=== PATIENT | female | born 1950 | race Two or more races ===

== ENCOUNTER 2020-02-04 00:04 | Inpatient (IN) | payer OTHER, MEDICARE ==
[~2020-02-04] VITALS: Ht 157.5 cm; Wt 104.0 kg
[2020-02-04 00:55] LABS: BASOPHILS % (AUTO) 0.5 % (0-1); EOSINOPHILS # (AUTO) 0.1 X10'3 (0-0.9); EOSINOPHILS % (AUTO) 1.2 % (0-6); HEMATOCRIT 38.4 % (35.0-45.0); HEMOGLOBIN 12.7 g/dl (12.0-16.0); LYMPHOCYTES # (AUTO) 1.8 X10'3 (1.1-4.8); LYMPHOCYTES % (AUTO) 21.7 % (21-51); MEAN CORPUSCULAR HEMOGLOBIN 28.2 PG (27.0-31.0); MEAN CORPUSCULAR HGB CONC 33.1 g/dL (33.0-36.5); MEAN PLATELET VOLUME 7.7 FL (7.4-10.4); MONOCYTES # (AUTO) 0.5 X10'3 (0-0.9); MONOCYTES % (AUTO) 5.5 % (2-12); NEUTROPHILS # (AUTO) 5.9 X10'3 (1.8-7.7); NEUTROPHILS % (AUTO) 71.1 % (42-75); PLATELET COUNT 238 X10'3 (140-440); RED BLOOD COUNT 4.51 X10'6 (4.20-5.60); RED CELL DISTRIBUTION WIDTH 16.5 % (11.5-14.5); WHITE BLOOD COUNT 8.3 X10'3 (4.5-11.0)
[2020-02-04 01:10] LABS: ALANINE AMINOTRANSFERASE 17 U/L (12-78); ALBUMIN/GLOBULIN RATIO 1.1 (1.1-1.5); ALKALINE PHOSPHATASE 51 IU/L (46-116); ANION GAP 9 (8-16); ASPARTATE AMINO TRANSFERASE 9 U/L (10-37); BILIRUBIN,TOTAL 0.5 MG/DL (0.1-1.0); BLOOD UREA NITROGEN 34 MG/DL (7-18); BUN/CREATININE RATIO 19.3 (6.6-38.0); CALCIUM 9.8 MG/DL (8.5-10.1); CHLORIDE 103 MMOL/L (99-107); CREATININE 1.76 MG/DL (0.40-0.90); GLUCOSE 202 MG/DL (70-104); LIPASE 596 U/L (73-393); SODIUM 138 MMOL/L (135-145); TOTAL CARBON DIOXIDE 25.6 MMOL/L (24-32); TOTAL PROTEIN 7.7 G/DL (6.4-8.2); eGFR 29 ML/MIN
[2020-02-04] MEDS ORDERED: normal saline 1000ML IV soln IVB ONE (01:20)
[2020-02-04] MEDS ORDERED: ondansetron/PF 4mg/2ml inj IV ONE (01:20)
[2020-02-04] MEDS ORDERED: morphine 4 MG/ML inj SYRINge IV PRN (01:20)
[2020-02-04 02:49] LABS: CLARITY,URINE CLEAR (Clear); COLOR,URINE YELLOW (Yellow); GLUCOSE, URINE 500 mg/dl (Neg); KETONES,URINE NEGATIVE (Neg); LEUKOCYTE ESTERASE ,URINE TRACE (Neg); NITRITES, URINE NEGATIVE (Neg); OCCULT BLOOD,URINE NEGATIVE (Neg); PH,URINE 6.5 (4.8-8.0); PROTEIN,URINE NEGATIVE (Neg); UROBILINOGEN,URINE 0.2 E.U/dL (0.2-1.0)
[2020-02-04 02:55] LABS: RBC,URINE NONE SEEN /HPF (0-2); UA COLLECTION TYPE NON-SPECIFIED
[2020-02-04 02:56] LABS: BACTERIA,URINE 2+ /HPF (Neg); SQUAMOUS EPITHELIAL CELL,UR MODERATE /LPF (FEW)
[2020-02-04] MEDS: normal saline 1000ml 1,000 ML IV SCH ×3 (03:07→23:07)
[2020-02-04] MEDS ORDERED: morphine 2 MG/ML inj. syringe IV PRN (03:10)
[2020-02-04] MEDS ORDERED: magnesium hydroxide 30ml (MOM) UD suspension PO PRN (03:10)
[2020-02-04] MEDS ORDERED: acetaminophen 325mg tablet PO PRN ×2 (03:10)
[2020-02-04] MEDS ORDERED: dextrose 50%-water 50ml dispensing syringe IV PRN ×2 (03:10)
[2020-02-04] MEDS ORDERED: HYDROcodone/acetaminophen 5mg/325mg tablet PO PRN (03:10)
[2020-02-04] MEDS ORDERED: dextrose ORAL solution 15 GM/59 ML bottle PO PRN ×2 (03:10)
[2020-02-04] MEDS ORDERED: MESSAGE TO PHARMACY PO ONE (03:10)
[2020-02-04] MEDS ORDERED: mag hydrox/Alum hydrox/simeth 30ml oral suspension PO PRN (03:10)
[2020-02-04] MEDS ORDERED: glucagon, human recombinant 1mg kit SUBCUT PRN (03:10)
[2020-02-04 03:39] LABS: HEMOGLOBIN A1C 6.6 % (4.5-6.2)
[2020-02-04] MEDS ORDERED: METF-436 PO (03:56)
[2020-02-04] MEDS ORDERED: ATOR20TA66 PO (03:56)
[2020-02-04] MEDS ORDERED: HCTZ25T PO (03:56)
[2020-02-04] MEDS ORDERED: PIOG30TA71 PO (03:56)
[2020-02-04] MEDS ORDERED: LISI10TA4 PO (03:56)
[2020-02-04] MEDS ORDERED: LORA-660 PO (04:14)
[2020-02-04] MEDS ORDERED: MELA5TAB12 PO (04:14)
[2020-02-04] MEDS ORDERED: EMPA10TA PO (04:14)
[2020-02-04] MEDS ORDERED: DULA1.5P SQ (04:14)
[2020-02-04] MEDS ORDERED: ASPI-1265 PO (04:14)
[2020-02-04 06:00] VITALS: BP 134/57
--- NOTE | 2020-02-04 06:23 | NUR ---
pt states she uses CPAP at home at night.
[2020-02-04] MEDS ORDERED: MV-M1TAB19 PO (07:11)
--- NOTE | 2020-02-04 07:31 | NUR ---
received ED report from YESSICA patient arrived to ortho floor 0720
[2020-02-04] MEDS ORDERED: potassium Cl 20 mEq SR tablet PO PRN ×2 (09:15)
[2020-02-04] MEDS ORDERED: magnesium 4gm in 100ml NS 100 ML IV PRN (09:15)
[2020-02-04] MEDS: K and/or MAG REPLACEMENT MC SCH ×2 (09:15→20:00)
[2020-02-04] MEDS ORDERED: potassium CL 10mEq/100ml bag 100 ML IV PRN (09:15)
[2020-02-04 10:00] VITALS: BP 152/62
[2020-02-04] MEDS: CefTRIAXone/D5W-Rocephin 1gm 50 ML IV SCH (10:09)
--- NOTE | 2020-02-04 11:39 | NUR ---
DM Consult: Pt A1C less than 7 and not appropriate for DM ed at this time. Addendum: 02/04/20 at [address] Amended: Links added.
[2020-02-04] MEDS ORDERED: PEG 3350/Na sulf,bicarb,Cl/KCl oral sol 4 liter bottle PO ONE (13:20)
[2020-02-04] MEDS ORDERED: metoclopramide 5 mg/ml inj IV PRN (13:20)
[2020-02-04] MEDS: ondansetron/PF 4mg/2ml inj IV PRN (15:22)
[2020-02-04] MEDS: metroNIDAZOLE-Flagyl 500mg/NS 100 ML IV SCH (15:22)
[2020-02-04 18:00] VITALS: BP 130/56
--- NOTE | 2020-02-04 18:00 | NUR ---
Patient in room ORTHO 4024. I have received report from STAN Ge and had the opportunity to ask questions and assume patient care. Addendum: 02/04/20 at 1900 by Caridad High RN Amended: Links added.
--- NOTE | 2020-02-04 18:38 | NUR ---
Problems reprioritized. Patient report given, questions answered & plan of care reviewed with
[2020-02-04] MEDS: insulin glargine (Lantus) pen - multi-dose SQ SCH (20:19)
[2020-02-04] MEDS: HYDROcodone/acetaminophen 10/325mg tab PO PRN (20:28)
[2020-02-04 22:00] VITALS: BP 121/54
[2020-02-05] VITALS (8 sets, daily range): BP systolic 101–127; BP diastolic 39–68
[2020-02-05] MEDS: metroNIDAZOLE-Flagyl 500mg/NS 100 ML IV SCH ×3 (00:28→20:28)
[2020-02-05] MEDS: normal saline 1000ml 1,000 ML IV SCH ×2 (02:56→20:29)
--- NOTE | 2020-02-05 06:24 | NUR ---
Problems reprioritized. Patient report given, questions answered & plan of care reviewed with STAN Zhu. Addendum: 02/05/20 at 0624 by Caridad High RN Amended: Links added.
[2020-02-05 06:29] LABS: BASOPHILS % (AUTO) 0.3 % (0-1); EOSINOPHILS # (AUTO) 0.1 X10'3 (0-0.9); EOSINOPHILS % (AUTO) 1.9 % (0-6); HEMATOCRIT 34.3 % (35.0-45.0); HEMOGLOBIN 11.3 g/dl (12.0-16.0); LYMPHOCYTES # (AUTO) 2.5 X10'3 (1.1-4.8); LYMPHOCYTES % (AUTO) 36.6 % (21-51); MEAN CORPUSCULAR HEMOGLOBIN 28.1 PG (27.0-31.0); MEAN CORPUSCULAR HGB CONC 32.9 g/dL (33.0-36.5); MEAN CORPUSCULAR VOLUME 85.4 FL (78-98); MONOCYTES # (AUTO) 0.5 X10'3 (0-0.9); MONOCYTES % (AUTO) 7.8 % (2-12); NEUTROPHILS # (AUTO) 3.6 X10'3 (1.8-7.7); NEUTROPHILS % (AUTO) 53.4 % (42-75); PLATELET COUNT 190 X10'3 (140-440); RED BLOOD COUNT 4.01 X10'6 (4.20-5.60); RED CELL DISTRIBUTION WIDTH 16.6 % (11.5-14.5); WHITE BLOOD COUNT 6.7 X10'3 (4.5-11.0)
[2020-02-05 06:54] LABS: ALBUMIN 3.6 G/DL (3.4-5.0); ANION GAP 10 (8-16); BLOOD UREA NITROGEN 20 MG/DL (7-18); BUN/CREATININE RATIO 14.5 (6.6-38.0); CALCIUM 8.8 MG/DL (8.5-10.1); CHLORIDE 107 MMOL/L (99-107); CREATININE 1.38 MG/DL (0.40-0.90); GLUCOSE 104 MG/DL (70-104); MAGNESIUM 1.8 MG/DL (1.5-2.4); POTASSIUM 3.9 MMOL/L (3.5-5.1); SODIUM 142 MMOL/L (135-145); eGFR 38 ML/MIN
[2020-02-05] MEDS: ondansetron/PF 4mg/2ml inj IV PRN (07:40)
[2020-02-05] MEDS: K and/or MAG REPLACEMENT MC SCH ×2 (08:00→20:00)
[2020-02-05] MEDS: CefTRIAXone/D5W-Rocephin 1gm 50 ML IV SCH (09:27)
[2020-02-05] MEDS ORDERED: MELA3TAB39 PO (11:19)
[2020-02-05] MEDS ORDERED: EMPA25TA PO (12:00)
[2020-02-05] MEDS ORDERED: fentaNYL/PF 50MCG/1 ML 2ML syringe ONE (14:54)
[2020-02-05] MEDS ORDERED: MIDAZolam 5mg/5ml vial ONE (14:54)
--- NOTE | 2020-02-05 18:34 | NUR ---
Problems reprioritized. Patient report given, questions answered & plan of care reviewed with Luiza PIERCE.
--- NOTE | 2020-02-05 19:42 | NUR ---
Patient in room ORTHO 4024. I have received report from Audra PIERCE and had the opportunity to ask questions and assume patient care.
[2020-02-05] MEDS: lactobacillus rhamnosus 10,000 MMU CELLS/CAPSULE PO SCH (20:28)
[2020-02-05] MEDS: Melatonin 3mg tablet PO SCH (20:29)
[2020-02-05] MEDS: insulin glargine (Lantus) pen - multi-dose SQ SCH (21:00)
[2020-02-06] VITALS (18 sets, daily range): BP systolic 117–164; BP diastolic 46–78
[2020-02-06] MEDS: metroNIDAZOLE-Flagyl 500mg/NS 100 ML IV SCH ×2 (00:01→07:45)
[2020-02-06] MEDS: normal saline 1000ml 1,000 ML IV SCH ×3 (05:07→23:12)
[2020-02-06 06:12] LABS: BASOPHILS % (AUTO) 0.3 % (0-1); EOSINOPHILS # (AUTO) 0.1 X10'3 (0-0.9); EOSINOPHILS % (AUTO) 2.6 % (0-6); HEMATOCRIT 29.4 % (35.0-45.0); HEMOGLOBIN 9.9 g/dl (12.0-16.0); LYMPHOCYTES # (AUTO) 1.8 X10'3 (1.1-4.8); LYMPHOCYTES % (AUTO) 33.2 % (21-51); MEAN CORPUSCULAR HEMOGLOBIN 28.9 PG (27.0-31.0); MEAN CORPUSCULAR HGB CONC 33.7 g/dL (33.0-36.5); MEAN CORPUSCULAR VOLUME 85.6 FL (78-98); MONOCYTES # (AUTO) 0.5 X10'3 (0-0.9); MONOCYTES % (AUTO) 8.7 % (2-12); NEUTROPHILS # (AUTO) 2.9 X10'3 (1.8-7.7); NEUTROPHILS % (AUTO) 55.2 % (42-75); PLATELET COUNT 160 X10'3 (140-440); RED BLOOD COUNT 3.44 X10'6 (4.20-5.60); RED CELL DISTRIBUTION WIDTH 16.5 % (11.5-14.5); WHITE BLOOD COUNT 5.3 X10'3 (4.5-11.0)
[2020-02-06 06:25] LABS: ALBUMIN 2.9 G/DL (3.4-5.0); ANION GAP 8 (8-16); BLOOD UREA NITROGEN 14 MG/DL (7-18); BUN/CREATININE RATIO 11.1 (6.6-38.0); CALCIUM 8.3 MG/DL (8.5-10.1); CHLORIDE 109 MMOL/L (99-107); CREATININE 1.26 MG/DL (0.40-0.90); GLUCOSE 111 MG/DL (70-104); LIPASE 292 U/L (73-393); MAGNESIUM 1.4 MG/DL (1.5-2.4); PHOSPHORUS 3.3 MG/DL (2.3-4.5); POTASSIUM 3.8 MMOL/L (3.5-5.1); SODIUM 142 MMOL/L (135-145); TOTAL CARBON DIOXIDE 25.4 MMOL/L (24-32); eGFR 42 ML/MIN
--- NOTE | 2020-02-06 06:26 | NUR ---
Problems reprioritized. Patient report given, questions answered & plan of care reviewed with Audra PIERCE.
[2020-02-06] MEDS: multivitamins, therapeutics tablet PO SCH (07:42)
[2020-02-06] MEDS: HYDROchlorothiazide 25mg tablet PO SCH (07:43)
[2020-02-06] MEDS: atorvastatin 20mg tablet PO SCH (07:43)
[2020-02-06] MEDS: lactobacillus rhamnosus 10,000 MMU CELLS/CAPSULE PO SCH ×2 (07:43→19:57)
[2020-02-06] MEDS: lisinopril 10 MG tablet PO SCH (07:43)
[2020-02-06] MEDS: magnesium Cl slow-release 64mg tablet PO PRN ×2 (07:51→19:57)
[2020-02-06] MEDS ORDERED: aspirin 81mg tab.chew PO SCH (08:00)
[2020-02-06] MEDS: loratadine 10mg tablet PO SCH (08:16)
[2020-02-06] MEDS: K and/or MAG REPLACEMENT MC SCH ×2 (08:17→19:08)
[2020-02-06] MEDS: CefTRIAXone/D5W-Rocephin 1gm 50 ML IV SCH (09:32)
[2020-02-06] MEDS ORDERED: ringers solution, lacted 1,000 ML IV SCH (10:26)
[2020-02-06] MEDS ORDERED: morphine 4 MG/ML inj SYRINge IV PRN (10:30)
[2020-02-06] MEDS ORDERED: morphine 2 MG/ML inj. syringe IV PRN (10:30)
[2020-02-06] MEDS ORDERED: meperidine/PF 25mg/ml syringe IV PRN ×2 (10:30)
[2020-02-06] MEDS ORDERED: proCHLORperazine 10 MG/2 ml inj IV PRN (10:30)
[2020-02-06] MEDS ORDERED: ondansetron/PF 4mg/2ml inj IV PRN (10:30)
[2020-02-06] MEDS ORDERED: fentaNYL /PF 50mcg/ml 5ml ampule ONE (10:34)
[2020-02-06] MEDS ORDERED: midazolam 2 mg/2 ml injection ONE (10:34)
[2020-02-06] MEDS ORDERED: rocuronium 10mg/ml inj IV ONE (10:40)
[2020-02-06] MEDS ORDERED: neostigmine methylsulfate 1 MG/ML 10ml vial ONE (10:40)
[2020-02-06] MEDS ORDERED: glycopyrrolate 0.2mg/ml inj ONE (10:40)
[2020-02-06] MEDS ORDERED: CefTRIAXone 1000mg inj ONE (10:40)
[2020-02-06] MEDS ORDERED: sevoflurane 250ml liquid IH ONE (10:40)
[2020-02-06] MEDS ORDERED: propofol inj 20 ML IV ONE (11:02)
[2020-02-06] MEDS ORDERED: LIDOcaine 2% (20mg/ml) 5ml vial ONE (11:11)
[2020-02-06] MEDS ORDERED: ondansetron/PF 4mg/2ml inj ONE (11:11)
[2020-02-06] MEDS ORDERED: dexamethasone sod phosphate 4mg/ml inj. ONE (11:11)
[2020-02-06] MEDS ORDERED: acetaminophen 1,000mg/100ml IV 100 ML IV ONE (11:12)
--- NOTE | 2020-02-06 12:22 | NUR ---
Received from OR via ORTHO BED , accompanied by Anesthesiologist DR PALACIOS and report given by Anesthesiolgist. PT AROUSABLE. WOUND VAC DRSG TO ABD CDI, NO DRAINAGE YET NOTED. NO LEAKS IN WOUND VAC. WOUND VAC AT 125 CONTINIOUS. ABD SOFT, PT STATES SHE IS PAINFUL. SCD'S ON. IV TO LEFT HAND PATENT, INFUSING IVF.
[2020-02-06] MEDS: meperidine/PF 25mg/ml syringe IV PRN ×2 (12:31→12:35)
--- NOTE | 2020-02-06 13:22 | NUR ---
PT TRANSFERRED BACK TO [facility] 4024 A PER MD ORDERS. PT TOLERATED A FEW ICE CHIPS IN PACU, DENIED NAUSEA. STATES PAIN IS MUCH BETTER AND IS NOW 3. REPORT GIVEN TO ANUP PIERCE WHO ASSUMED CARE OF PT. ALL BELONGINGS W/ PT UPON XFER TO ORTHO INCLUDING CELL PHONE AND EYE GLASSES. PT AND NURSE AWARE ITEMS PLACED AT BEDSIDE. WOUND VAC DRSG REMAINS CDI WITH NO DRAINAGE YET. PT STATED READINESS FOR XFER BACK TO ORTHO FLOOR.
[2020-02-06] MEDS: morphine 2 MG/ML inj. syringe IV PRN ×3 (14:19→22:47)
[2020-02-06] MEDS: metroNIDAZOLE 500mg tablet PO SCH ×2 (15:34→23:12)
[2020-02-06] MEDS: HYDROcodone/acetaminophen 10/325mg tab PO PRN (17:26)
--- NOTE | 2020-02-06 17:44 | NUR ---
Problems reprioritized. Patient report given, questions answered & plan of care reviewed with Eunice PIERCE on surgical .
--- NOTE | 2020-02-06 17:51 | NUR ---
Patient was transferred to surgical unit, all belongings gathered and sent with patient. Patient had hypoactive bowel sounds. Wound vac had minimal serous sanguineous drainage.
--- NOTE | 2020-02-06 18:30 | NUR ---
Problems reprioritized. Patient report given, questions answered & plan of care reviewed with Celia PIERCE.
[2020-02-06] MEDS: ondansetron/PF 4mg/2ml inj IV PRN (18:37)
--- NOTE | 2020-02-06 18:56 | NUR ---
Patient in room [facility] 349. I have received report from STAN Anna and had the opportunity to ask questions and assume patient care.
[2020-02-06] MEDS: insulin glargine (Lantus) pen - multi-dose SQ SCH (21:00)
[2020-02-06] MEDS: Melatonin 3mg tablet PO SCH (22:47)
[2020-02-07 00:37] VITALS: BP 151/54
[2020-02-07] MEDS: morphine 2 MG/ML inj. syringe IV PRN ×4 (02:49→21:14)
[2020-02-07 05:50] LABS: BASOPHILS % (AUTO) 0.1 % (0-1); EOSINOPHILS % (AUTO) 0 % (0-6); HEMATOCRIT 30.5 % (35.0-45.0); HEMOGLOBIN 10.5 g/dl (12.0-16.0); LYMPHOCYTES % (AUTO) 10.5 % (21-51); MEAN CORPUSCULAR HEMOGLOBIN 28.8 PG (27.0-31.0); MEAN CORPUSCULAR HGB CONC 34.3 g/dL (33.0-36.5); MEAN CORPUSCULAR VOLUME 83.8 FL (78-98); MEAN PLATELET VOLUME 8.3 FL (7.4-10.4); MONOCYTES # (AUTO) 0.7 X10'3 (0-0.9); MONOCYTES % (AUTO) 7.4 % (2-12); NEUTROPHILS # (AUTO) 8.1 X10'3 (1.8-7.7); PLATELET COUNT 177 X10'3 (140-440); RED BLOOD COUNT 3.64 X10'6 (4.20-5.60); RED CELL DISTRIBUTION WIDTH 15.9 % (11.5-14.5); WHITE BLOOD COUNT 9.9 X10'3 (4.5-11.0)
[2020-02-07 06:14] LABS: ALBUMIN 3.2 G/DL (3.4-5.0); ANION GAP 11 (8-16); BLOOD UREA NITROGEN 11 MG/DL (7-18); BUN/CREATININE RATIO 8.6 (6.6-38.0); CALCIUM 8.8 MG/DL (8.5-10.1); CHLORIDE 105 MMOL/L (99-107); CREATININE 1.28 MG/DL (0.40-0.90); GLUCOSE 158 MG/DL (70-104); MAGNESIUM 1.6 MG/DL (1.5-2.4); PHOSPHORUS 4.4 MG/DL (2.3-4.5); POTASSIUM 4.1 MMOL/L (3.5-5.1); SODIUM 139 MMOL/L (135-145); TOTAL CARBON DIOXIDE 23.4 MMOL/L (24-32); eGFR 41 ML/MIN
--- NOTE | 2020-02-07 06:30 | NUR ---
Patient in room [facility] 349. I have received report from Celia PIERCE and had the opportunity to ask questions and assume patient care.
--- NOTE | 2020-02-07 06:32 | NUR ---
Problems reprioritized. Patient report given, questions answered & plan of care reviewed with STAN Anna.
[2020-02-07 07:50] VITALS: BP 164/69
[2020-02-07] MEDS: K and/or MAG REPLACEMENT MC SCH ×2 (08:00→19:39)
[2020-02-07] MEDS: metroNIDAZOLE 500mg tablet PO SCH ×2 (09:22→16:08)
[2020-02-07] MEDS: CefTRIAXone/D5W-Rocephin 1gm 50 ML IV SCH (09:22)
[2020-02-07] MEDS: HYDROchlorothiazide 25mg tablet PO SCH (09:23)
[2020-02-07] MEDS: atorvastatin 20mg tablet PO SCH (09:23)
[2020-02-07] MEDS: lactobacillus rhamnosus 10,000 MMU CELLS/CAPSULE PO SCH ×2 (09:23→21:14)
[2020-02-07] MEDS: multivitamins, therapeutics tablet PO SCH (09:23)
[2020-02-07] MEDS: lisinopril 10 MG tablet PO SCH (09:23)
[2020-02-07] MEDS: loratadine 10mg tablet PO SCH (09:23)
[2020-02-07 11:00] VITALS: BP 145/57
[2020-02-07] MEDS: normal saline 1000ml 1,000 ML IV SCH (12:50)
--- NOTE | 2020-02-07 13:10 | NUR ---
Strauss catheter removed, patient tolerated the procedure well
[2020-02-07 18:15] VITALS: BP 144/51
--- NOTE | 2020-02-07 18:37 | NUR ---
Problems reprioritized. Patient report given, questions answered & plan of care reviewed with Celia PIERCE.
--- NOTE | 2020-02-07 19:03 | NUR ---
Patient in room [facility] 349. I have received report from STAN Anna and had the opportunity to ask questions and assume patient care.
[2020-02-07] MEDS: insulin glargine (Lantus) pen - multi-dose SQ SCH (21:00)
--- NOTE | 2020-02-07 21:03 | NUR ---
Pt s/p FC dc today. Bladder scan performed, 391 mL. Patient was able to void in bsc, 100 mL output. Discussed with patient importance of voiding s/p FC dc and to avoid retention. Pt awares. Will continue to monitor urine output.
[2020-02-07] MEDS: Melatonin 3mg tablet PO SCH (21:14)
[2020-02-08] MEDS: metroNIDAZOLE 500mg tablet PO SCH ×4 (00:12→23:53)
[2020-02-08 00:37] VITALS: BP 139/57
[2020-02-08] MEDS: morphine 2 MG/ML inj. syringe IV PRN ×3 (03:16→19:11)
[2020-02-08 05:17] LABS: BASOPHILS % (AUTO) 0.3 % (0-1); EOSINOPHILS # (AUTO) 0.1 X10'3 (0-0.9); EOSINOPHILS % (AUTO) 1.5 % (0-6); HEMATOCRIT 30.4 % (35.0-45.0); HEMOGLOBIN 10.1 g/dl (12.0-16.0); LYMPHOCYTES # (AUTO) 1.4 X10'3 (1.1-4.8); LYMPHOCYTES % (AUTO) 16.5 % (21-51); MEAN CORPUSCULAR HEMOGLOBIN 28.1 PG (27.0-31.0); MEAN CORPUSCULAR HGB CONC 33.2 g/dL (33.0-36.5); MEAN CORPUSCULAR VOLUME 84.6 FL (78-98); MEAN PLATELET VOLUME 8.2 FL (7.4-10.4); MONOCYTES # (AUTO) 0.8 X10'3 (0-0.9); MONOCYTES % (AUTO) 8.9 % (2-12); NEUTROPHILS # (AUTO) 6.2 X10'3 (1.8-7.7); NEUTROPHILS % (AUTO) 72.8 % (42-75); PLATELET COUNT 168 X10'3 (140-440); RED BLOOD COUNT 3.59 X10'6 (4.20-5.60); RED CELL DISTRIBUTION WIDTH 16.4 % (11.5-14.5); WHITE BLOOD COUNT 8.5 X10'3 (4.5-11.0)
[2020-02-08 05:27] LABS: ANION GAP 6 (8-16); BLOOD UREA NITROGEN 9 MG/DL (7-18); BUN/CREATININE RATIO 7.6 (6.6-38.0); CALCIUM 8.9 MG/DL (8.5-10.1); CHLORIDE 105 MMOL/L (99-107); CREATININE 1.19 MG/DL (0.40-0.90); GLUCOSE 160 MG/DL (70-104); MAGNESIUM 1.5 MG/DL (1.5-2.4); PHOSPHORUS 2.6 MG/DL (2.3-4.5); POTASSIUM 3.5 MMOL/L (3.5-5.1); SODIUM 138 MMOL/L (135-145); eGFR 45 ML/MIN
--- NOTE | 2020-02-08 06:07 | NUR ---
I have received report from Celia PIERCE and had the opportunity to ask questions and assume patient care.
--- NOTE | 2020-02-08 06:43 | NUR ---
Problems reprioritized. Patient report given, questions answered & plan of care reviewed with STAN Lo.
[2020-02-08 07:47] VITALS: BP 129/59
[2020-02-08] MEDS: ondansetron/PF 4mg/2ml inj IV PRN (07:59)
[2020-02-08] MEDS: atorvastatin 20mg tablet PO SCH (08:00)
[2020-02-08] MEDS: multivitamins, therapeutics tablet PO SCH (08:00)
[2020-02-08] MEDS: HYDROchlorothiazide 25mg tablet PO SCH (08:00)
[2020-02-08] MEDS: lactobacillus rhamnosus 10,000 MMU CELLS/CAPSULE PO SCH ×2 (08:00→21:29)
[2020-02-08] MEDS: CefTRIAXone/D5W-Rocephin 1gm 50 ML IV SCH (08:00)
[2020-02-08] MEDS: lisinopril 10 MG tablet PO SCH (08:01)
[2020-02-08] MEDS: loratadine 10mg tablet PO SCH (08:01)
[2020-02-08] MEDS: insulin Lispro (HumaLOG) vial - multi-dose SQ SCH ×2 (08:09→14:29)
[2020-02-08] MEDS: K and/or MAG REPLACEMENT MC SCH ×2 (08:10→20:00)
[2020-02-08 11:00] VITALS: BP 127/56
[2020-02-08] MEDS: normal saline 1000ml 1,000 ML IV SCH (18:02)
--- NOTE | 2020-02-08 18:04 | NUR ---
Problems reprioritized. Patient report given, questions answered & plan of care reviewed with Mason PIERCE.
[2020-02-08 19:50] VITALS: BP 139/52
[2020-02-08] MEDS: insulin glargine (Lantus) pen - multi-dose SQ SCH (20:49)
[2020-02-08] MEDS: Melatonin 3mg tablet PO SCH (21:29)
[2020-02-09] VITALS: BP 133/57
[2020-02-09] MEDS: morphine 2 MG/ML inj. syringe IV PRN ×4 (00:21→19:16)
[2020-02-09] MEDS: ondansetron/PF 4mg/2ml inj IV PRN ×2 (04:38→12:41)
[2020-02-09 05:11] LABS: BASOPHILS % (AUTO) 0.4 % (0-1); EOSINOPHILS # (AUTO) 0.2 X10'3 (0-0.9); EOSINOPHILS % (AUTO) 2.1 % (0-6); HEMATOCRIT 32.5 % (35.0-45.0); HEMOGLOBIN 10.9 g/dl (12.0-16.0); LYMPHOCYTES # (AUTO) 1.6 X10'3 (1.1-4.8); LYMPHOCYTES % (AUTO) 19.1 % (21-51); MEAN CORPUSCULAR HEMOGLOBIN 28.1 PG (27.0-31.0); MEAN CORPUSCULAR HGB CONC 33.5 g/dL (33.0-36.5); MEAN CORPUSCULAR VOLUME 84.1 FL (78-98); MEAN PLATELET VOLUME 8.2 FL (7.4-10.4); MONOCYTES # (AUTO) 0.7 X10'3 (0-0.9); NEUTROPHILS # (AUTO) 5.9 X10'3 (1.8-7.7); NEUTROPHILS % (AUTO) 70.4 % (42-75); PLATELET COUNT 200 X10'3 (140-440); RED BLOOD COUNT 3.87 X10'6 (4.20-5.60); RED CELL DISTRIBUTION WIDTH 16.5 % (11.5-14.5); WHITE BLOOD COUNT 8.3 X10'3 (4.5-11.0)
[2020-02-09 05:33] LABS: ALBUMIN 3.1 G/DL (3.4-5.0); ANION GAP 8 (8-16); BLOOD UREA NITROGEN 8 MG/DL (7-18); BUN/CREATININE RATIO 6.6 (6.6-38.0); CALCIUM 9.1 MG/DL (8.5-10.1); CHLORIDE 103 MMOL/L (99-107); CREATININE 1.22 MG/DL (0.40-0.90); GLUCOSE 157 MG/DL (70-104); MAGNESIUM 1.5 MG/DL (1.5-2.4); PHOSPHORUS 3.1 MG/DL (2.3-4.5); POTASSIUM 3.7 MMOL/L (3.5-5.1); SODIUM 140 MMOL/L (135-145); TOTAL CARBON DIOXIDE 29.3 MMOL/L (24-32); eGFR 44 ML/MIN
--- NOTE | 2020-02-09 06:05 | NUR ---
Patient in room [facility] 349B. I have received report from STAN THOMPSON and had the opportunity to ask questions and assume patient care.
[2020-02-09 08:00] VITALS: BP 140/77
[2020-02-09] MEDS: K and/or MAG REPLACEMENT MC SCH ×2 (08:00→20:00)
[2020-02-09] MEDS: CefTRIAXone/D5W-Rocephin 1gm 50 ML IV SCH (08:19)
[2020-02-09] MEDS: atorvastatin 20mg tablet PO SCH (08:22)
[2020-02-09] MEDS: multivitamins, therapeutics tablet PO SCH (08:23)
[2020-02-09] MEDS: metroNIDAZOLE 500mg tablet PO SCH ×3 (08:23→23:29)
[2020-02-09] MEDS: lisinopril 10 MG tablet PO SCH (08:23)
[2020-02-09] MEDS: lactobacillus rhamnosus 10,000 MMU CELLS/CAPSULE PO SCH ×2 (08:23→19:15)
[2020-02-09] MEDS: loratadine 10mg tablet PO SCH (08:23)
[2020-02-09] MEDS: HYDROchlorothiazide 25mg tablet PO SCH (08:23)
[2020-02-09 11:00] VITALS: BP 135/64
--- NOTE | 2020-02-09 14:18 | NUR ---
Initial: Pt admit w/ colonic obstruction r/t mass and UTI. S/p ascending colon resection biopsy pending w/ renal masses noted as well per MD note. LBM 02/05 advanced to clear liquids post-op PO 25-50% avg meals. Refused breakfast this AM w/ abdominal pain noted pending lunch PO today. Stable for discharge per surgeon note; no orders at this time. Will monitor for PO diet advancement and additional protein needs post-op. Rec: 1. advance diet as medically indicated to heart healthy 2. monitor for ONS needs as diet advances 3. routine bowel care 4. scaled wt this admit Addendum: 02/09/20 at [address] Amended: Links added.
--- NOTE | 2020-02-09 14:52 | NUR ---
WOUND VAC EDUCATION PROVIDED BY WOUND CARE 1. Patient instructed to call the Wound Center or their Home Health Agency immediately if: * They notice a change in the color or amount of the fluid in the canister. * Their wound looks more red than usual or has a foul smell. * The skin around their wound looks reddened or irritated. * The dressing feels loose or appears to be loose. * They experience any increase or changes in their pain. * The alarm will not turn off. 2. Patient instructed that they should not be disconnected from suction for more than 2 hours at a time. * If they are not able to get the suction back on, they need to remove the dressing and take all of the foam out of the wound. * Then moisten sterile gauze with normal saline and place on/in the wound. * Change the dressing once a day until arrangements have been made to replace the wound vac dressing. 3. Patient instructed to turn the wound vac machine OFF and call 911 or go to the ED immediately if their canister fills rapidly with blood. 4. If any of these occur while in the hospital tell a nurse immediately. WOUND INFECTION EDUCATION PROVIDED BY WOUND CARE 1. Patient instructed to call their primary doctor, or go the ED immediately if any of the following symptoms occur: * Increased pain in wound * Increase in drainage from the wound * Redness in the skin surrounding the wound * Warmth in the skin surrounding the wound * Bleeding from the wound * Temperature of 101 or greater 2. If any of these occur while in the hospital tell a nurse immediately. Addendum: 02/09/20 at 1453 by Claudia Prado RN Amended: Links added.
[2020-02-09 18:00] VITALS: BP 114/57
--- NOTE | 2020-02-09 18:46 | NUR ---
Problems reprioritized. Patient report given, questions answered & plan of care reviewed with STAN THOMPSON.
[2020-02-09] MEDS: insulin Lispro (HumaLOG) vial - multi-dose SQ SCH (19:19)
[2020-02-09] MEDS: Melatonin 3mg tablet PO SCH (21:31)
[2020-02-09] MEDS: insulin glargine (Lantus) pen - multi-dose SQ SCH (21:33)
[2020-02-10] VITALS: BP 138/59
[2020-02-10] MEDS: normal saline 1000ml 1,000 ML IV SCH ×2 (03:22→13:12)
[2020-02-10] MEDS: morphine 2 MG/ML inj. syringe IV PRN ×3 (04:19→20:52)
--- NOTE | 2020-02-10 06:16 | NUR ---
Patient in room [facility] 349B. I have received report from STAN THOMPSON and had the opportunity to ask questions and assume patient care.
[2020-02-10 07:00] VITALS: BP 138/55
[2020-02-10] MEDS: K and/or MAG REPLACEMENT MC SCH ×2 (08:00→20:00)
[2020-02-10] MEDS: loratadine 10mg tablet PO SCH (08:41)
[2020-02-10] MEDS: metroNIDAZOLE 500mg tablet PO SCH ×3 (08:41→23:20)
[2020-02-10] MEDS: lactobacillus rhamnosus 10,000 MMU CELLS/CAPSULE PO SCH ×2 (08:41→20:51)
[2020-02-10] MEDS: atorvastatin 20mg tablet PO SCH (08:41)
[2020-02-10] MEDS: multivitamins, therapeutics tablet PO SCH (08:42)
[2020-02-10] MEDS: lisinopril 10 MG tablet PO SCH (08:42)
[2020-02-10] MEDS: CefTRIAXone/D5W-Rocephin 1gm 50 ML IV SCH (08:42)
[2020-02-10] MEDS: HYDROchlorothiazide 25mg tablet PO SCH (08:42)
[2020-02-10] MEDS: insulin Lispro (HumaLOG) vial - multi-dose SQ SCH ×3 (08:50→19:11)
[2020-02-10 14:20] VITALS: BP 132/63
[2020-02-10 18:00] VITALS: BP 169/84
--- NOTE | 2020-02-10 18:33 | NUR ---
Problems reprioritized. Patient report given, questions answered & plan of care reviewed with STAN THOMPSON.
[2020-02-10] MEDS: Melatonin 3mg tablet PO SCH (20:51)
[2020-02-10] MEDS: insulin glargine (Lantus) pen - multi-dose SQ SCH (20:57)
[2020-02-11] VITALS: BP 153/68
[2020-02-11] MEDS: morphine 2 MG/ML inj. syringe IV PRN ×2 (05:46→10:00)
--- NOTE | 2020-02-11 06:27 | NUR ---
Patient in room [facility] 349. I have received report from Mason PIERCE and had the opportunity to ask questions and assume patient care.
[2020-02-11 08:00] VITALS: BP 132/61
[2020-02-11] MEDS: K and/or MAG REPLACEMENT MC SCH (08:00)
--- NOTE | 2020-02-11 08:09 | NUR ---
Dr Alvarenga rounded stating pt is cleared surgically to discharge home.
[2020-02-11] MEDS: lisinopril 10 MG tablet PO SCH (09:36)
[2020-02-11] MEDS: loratadine 10mg tablet PO SCH (09:36)
[2020-02-11] MEDS: multivitamins, therapeutics tablet PO SCH (09:36)
[2020-02-11] MEDS: atorvastatin 20mg tablet PO SCH (09:37)
[2020-02-11] MEDS: lactobacillus rhamnosus 10,000 MMU CELLS/CAPSULE PO SCH (09:37)
[2020-02-11] MEDS: HYDROchlorothiazide 25mg tablet PO SCH (09:37)
--- NOTE | 2020-02-11 10:36 | NUR ---
WOUND INFECTION EDUCATION PROVIDED BY WOUND CARE 1. Patient instructed to call their primary doctor, or go the ED immediately if any of the following symptoms occur: * Increased pain in wound * Increase in drainage from the wound * Redness in the skin surrounding the wound * Warmth in the skin surrounding the wound * Bleeding from the wound * Temperature of 101 or greater 2. If any of these occur while in the hospital tell a nurse immediately. WOUND VAC EDUCATION PROVIDED BY WOUND CARE 1. Patient instructed to call the Wound Center or their Home Health Agency immediately if: * They notice a change in the color or amount of the fluid in the canister. * Their wound looks more red than usual or has a foul smell. * The skin around their wound looks reddened or irritated. * The dressing feels loose or appears to be loose. * They experience any increase or changes in their pain. * The alarm will not turn off. 2. Patient instructed that they should not be disconnected from suction for more than 2 hours at a time. * If they are not able to get the suction back on, they need to remove the dressing and take all of the foam out of the wound. * Then moisten sterile gauze with normal saline and place on/in the wound. * Change the dressing once a day until arrangements have been made to replace the wound vac dressing. 3. Patient instructed to turn the wound vac machine OFF and call 911 or go to the ED immediately if their canister fills rapidly with blood. 4. If any of these occur while in the hospital tell a nurse immediately. Addendum: 02/11/20 at 1036 by Alison Araiza RN Amended: Links added.
[2020-02-11 11:57] VITALS: BP 130/50
[2020-02-11] MEDS ORDERED: HYDR-4353 PO ×2 (12:54→12:56)
--- NOTE | 2020-02-11 13:15 | NUR ---
Patient stated that her ride upon discharge will not be available until 5:30 pm today. Charge nurse notified about late discharge time. [employer] paged to request home health service
--- NOTE | 2020-02-11 15:08 | NUR ---
Discharge instructions given to patient, patient verbalized understanding of all instructions made. Peripheral IV catheter removed, tip intact. Instructed patient to ensure she has all belongings with her before leaving. Written prescription for Okay given to patient. Instructed patient to ensure she follow up with Wound Care clinic 02/13/20 at 10 am as scheduled with her insurance card, ID, wound vac and supplies. Patient was also instructed to follow up with Dr. Vargas Urologist upon discharge
--- NOTE | 2020-02-11 15:11 | NUR ---
Report given to Colette PIERCE
--- NOTE | 2020-02-11 16:00 | NUR ---
Report received from STAN Anna regarding this patient. Patient to be discharged home today at approximately 1730-waiting for her ride. Educated patient on use of her wound vac/changing the canister and charging the wound vac. Patient states she understands if it beeps how to look for possible leak, and that pt has only 2 hours if wound vac dies before sponge must be changed. pt states she has no further questions.
--- NOTE | 2020-02-11 17:40 | NUR ---
Patient discharged via wheelchair; all belongings sent with her and wound vac supplies. Patient refused to have 1700 blood glucose check this afternoon. pt stated "Im going home I dont want to know what it is right now I've had so many pokes already."
== END 2020-02-11 17:33 | disposition home health service (06) | DRG 329 ==
LOC: ER 00:05 → ED HOLD 03:07 → ORTHO 4S 07:30 → SUR 3N 02-06 17:51
PROVIDERS: ADMIT Internal Medicine; ATTEND Family Medicine
PROC: 0DTK0ZZ Resection of Ascending Colon, Open Approach (ICD-10-PCS; principal; 2020-02-07)
DX: C18.2 Malignant neoplasm of ascending colon (principal); K85.90 Acute pancreatitis without necrosis or infection, unspecified; K56.609 Unspecified intestinal obstruction, unspecified as to partial versus complete obstruction; N39.0 Urinary tract infection, site not specified; C19 Malignant neoplasm of rectosigmoid junction; E11.9 Type 2 diabetes mellitus without complications; Z83.3 Family history of diabetes mellitus; Z87.891 Personal history of nicotine dependence; Z90.49 Acquired absence of other specified parts of digestive tract
CPT/HCPCS: 45335; 45380; 45381; 96361; 96374; 99285; Z7506; Z7508; 36415; 74176; 80048; 80053; 81001; 82948; 83036; 83690; 83735; 84100; 85025; 86885; 86900; 86901; 86920; 87081; 87088; 93005; 99152; 99153; A4618; A4620; A6550; A7000; C1758; G0378; J0131; J0696; J1100; J1815; J2001; J2175; J2250; J2270; J2405; J2704; J2710; J3010; J3490; J7030; J7040; J7120

== ENCOUNTER 2020-02-27 10:13 | Day surgery (SDC) | payer OTHER, MEDICARE ==
[~2020-02-27 10:13] MED LIST: ASPI-1265 PO; ATOR20TA66 PO; DULA1.5P SQ; EMPA25TA PO; HCTZ25T PO; HYDR-4353 PO; LIDOcaine 2% 5ml jelly ONE; LISI10TA4 PO; LORA-660 PO; MELA3TAB39 PO; METF-436 PO; MV-M1TAB19 PO; PIOG30TA71 PO
[2020-02-27] MEDS ORDERED: LIDOcaine 2% 5ml jelly ONE (10:33)
== END 2020-02-27 12:03 | disposition home or self-care (01) ==
LOC: WOUND CARE 10:13
PROVIDERS: ATTEND Nurse Practitioner
DX: K94.09 Other complications of colostomy (principal); T81.31XD Disruption of external operation (surgical) wound, not elsewhere classified, subsequent encounter; L98.492 Non-pressure chronic ulcer of skin of other sites with fat layer exposed; I10 Essential (primary) hypertension; E78.5 Hyperlipidemia, unspecified; H26.9 Unspecified cataract; Z85.038 Personal history of other malignant neoplasm of large intestine; Z90.49 Acquired absence of other specified parts of digestive tract; Z87.891 Personal history of nicotine dependence; Y83.8 Other surgical procedures as the cause of abnormal reaction of the patient, or of later complication, without mention of misadventure at the time of the procedure
CPT/HCPCS: 36416; 82948; 97597; 97598

== ENCOUNTER 2020-03-05 10:14 | Day surgery (SDC) | payer OTHER, MEDICARE ==
[~2020-03-05 10:14] MED LIST changes: -LIDOcaine 2% 5ml jelly ONE
[2020-03-05] MEDS ORDERED: LIDOcaine 2% 5ml jelly ONE (11:05)
== END 2020-03-05 11:43 | disposition home or self-care (01) ==
LOC: WOUND CARE 10:14
PROVIDERS: ATTEND Nurse Practitioner
DX: K94.09 Other complications of colostomy (principal); T81.31XD Disruption of external operation (surgical) wound, not elsewhere classified, subsequent encounter; L98.492 Non-pressure chronic ulcer of skin of other sites with fat layer exposed; I10 Essential (primary) hypertension; E11.36 Type 2 diabetes mellitus with diabetic cataract; E78.5 Hyperlipidemia, unspecified; Z85.038 Personal history of other malignant neoplasm of large intestine; Z90.49 Acquired absence of other specified parts of digestive tract; Z87.891 Personal history of nicotine dependence; Y83.3 Surgical operation with formation of external stoma as the cause of abnormal reaction of the patient, or of later complication, without mention of misadventure at the time of the procedure
CPT/HCPCS: 36416; 82948; 97597; 97598

== ENCOUNTER 2020-03-12 10:15 | Day surgery (SDC) | payer OTHER, MEDICARE ==
[2020-03-12] MEDS ORDERED: LIDOcaine 2% 5ml jelly ONE (10:35)
== END 2020-03-12 11:11 | disposition home or self-care (01) ==
LOC: WOUND CARE 10:15
PROVIDERS: ATTEND Nurse Practitioner
DX: K94.09 Other complications of colostomy (principal); T81.31XD Disruption of external operation (surgical) wound, not elsewhere classified, subsequent encounter; E11.622 Type 2 diabetes mellitus with other skin ulcer; L98.492 Non-pressure chronic ulcer of skin of other sites with fat layer exposed; I10 Essential (primary) hypertension; E11.36 Type 2 diabetes mellitus with diabetic cataract; E78.5 Hyperlipidemia, unspecified; Z85.038 Personal history of other malignant neoplasm of large intestine; Z90.49 Acquired absence of other specified parts of digestive tract; Z87.891 Personal history of nicotine dependence; Y83.8 Other surgical procedures as the cause of abnormal reaction of the patient, or of later complication, without mention of misadventure at the time of the procedure
CPT/HCPCS: 97597

== ENCOUNTER 2020-03-19 10:20 | Day surgery (SDC) | payer OTHER, MEDICARE ==
[~2020-03-19 10:20] MED LIST changes: -HYDR-4353 PO
[2020-03-19] MEDS ORDERED: LIDOcaine 2% 5ml jelly ONE (10:44)
== END 2020-03-19 11:10 | disposition home or self-care (01) ==
LOC: WOUND CARE 10:20
PROVIDERS: ATTEND Nurse Practitioner
DX: T81.31XD Disruption of external operation (surgical) wound, not elsewhere classified, subsequent encounter (principal); E11.622 Type 2 diabetes mellitus with other skin ulcer; L98.492 Non-pressure chronic ulcer of skin of other sites with fat layer exposed; I10 Essential (primary) hypertension; E11.36 Type 2 diabetes mellitus with diabetic cataract; H26.8 Other specified cataract; E78.5 Hyperlipidemia, unspecified; K94.09 Other complications of colostomy; Z90.49 Acquired absence of other specified parts of digestive tract; Z87.891 Personal history of nicotine dependence; Y83.8 Other surgical procedures as the cause of abnormal reaction of the patient, or of later complication, without mention of misadventure at the time of the procedure
CPT/HCPCS: 82948; 97597

== ENCOUNTER 2020-03-26 11:13 | Day surgery (SDC) | payer OTHER, MEDICARE ==
[2020-03-26] MEDS ORDERED: LIDOcaine 2% 5ml jelly ONE (11:34)
== END 2020-03-26 12:15 | disposition home or self-care (01) ==
LOC: WOUND CARE 11:13
PROVIDERS: ATTEND Nurse Practitioner
DX: T81.31XD Disruption of external operation (surgical) wound, not elsewhere classified, subsequent encounter (principal); K94.09 Other complications of colostomy; E11.622 Type 2 diabetes mellitus with other skin ulcer; L98.492 Non-pressure chronic ulcer of skin of other sites with fat layer exposed; I10 Essential (primary) hypertension; E11.36 Type 2 diabetes mellitus with diabetic cataract; E78.5 Hyperlipidemia, unspecified; Z85.038 Personal history of other malignant neoplasm of large intestine; Z90.49 Acquired absence of other specified parts of digestive tract; Z87.891 Personal history of nicotine dependence; Y83.8 Other surgical procedures as the cause of abnormal reaction of the patient, or of later complication, without mention of misadventure at the time of the procedure
CPT/HCPCS: 87070; 87075; 87077; 87102; 87186; 97597

== ENCOUNTER 2020-04-02 09:35 | Outpatient (CLI) | payer MEDICARE, OTHER | END 2020-04-02 10:21 | disposition home or self-care (01) | LOC: WOUND CARE 09:35 → EDSTATUS 09:40 → WOUND CARE 10:21 | PROVIDERS: ATTEND Nurse Practitioner | DX: T81.31XD Disruption of external operation (surgical) wound, not elsewhere classified, subsequent encounter (principal); E11.622 Type 2 diabetes mellitus with other skin ulcer; L98.492 Non-pressure chronic ulcer of skin of other sites with fat layer exposed; I10 Essential (primary) hypertension; E11.36 Type 2 diabetes mellitus with diabetic cataract; E66.9 Obesity, unspecified; E78.5 Hyperlipidemia, unspecified; Z85.038 Personal history of other malignant neoplasm of large intestine; Z90.49 Acquired absence of other specified parts of digestive tract; Z87.891 Personal history of nicotine dependence; Z68.41 Body mass index [BMI] 40.0-44.9, adult; Z79.84 Long term (current) use of oral hypoglycemic drugs; Y83.8 Other surgical procedures as the cause of abnormal reaction of the patient, or of later complication, without mention of misadventure at the time of the procedure | CPT/HCPCS: G0463 ==

== ENCOUNTER 2020-04-08 09:32 | Day surgery (SDC) | payer MEDICARE, BC ==
[2020-04-08] MEDS ORDERED: LIDOcaine 2% 5ml jelly ONE (09:56)
== END 2020-04-08 10:22 | disposition home or self-care (01) ==
LOC: WOUND CARE 09:32
PROVIDERS: ATTEND Nurse Practitioner
DX: T81.31XD Disruption of external operation (surgical) wound, not elsewhere classified, subsequent encounter (principal); E11.622 Type 2 diabetes mellitus with other skin ulcer; L98.492 Non-pressure chronic ulcer of skin of other sites with fat layer exposed; I10 Essential (primary) hypertension; E11.36 Type 2 diabetes mellitus with diabetic cataract; E78.5 Hyperlipidemia, unspecified; Z85.038 Personal history of other malignant neoplasm of large intestine; Z90.49 Acquired absence of other specified parts of digestive tract; Z87.891 Personal history of nicotine dependence; Y83.8 Other surgical procedures as the cause of abnormal reaction of the patient, or of later complication, without mention of misadventure at the time of the procedure
CPT/HCPCS: 36416; 82948; 97597

== ENCOUNTER 2020-04-15 09:34 | Day surgery (SDC) | payer MEDICARE, BC ==
[2020-04-15] MEDS ORDERED: LIDOcaine 2% 5ml jelly ONE (09:58)
== END 2020-04-15 10:37 | disposition home or self-care (01) ==
LOC: WOUND CARE 09:34
PROVIDERS: ATTEND Nurse Practitioner
DX: T81.31XD Disruption of external operation (surgical) wound, not elsewhere classified, subsequent encounter (principal); E11.622 Type 2 diabetes mellitus with other skin ulcer; L98.492 Non-pressure chronic ulcer of skin of other sites with fat layer exposed; I10 Essential (primary) hypertension; E11.36 Type 2 diabetes mellitus with diabetic cataract; E78.5 Hyperlipidemia, unspecified; E66.9 Obesity, unspecified; Z85.038 Personal history of other malignant neoplasm of large intestine; Z90.49 Acquired absence of other specified parts of digestive tract; Z87.891 Personal history of nicotine dependence; Y83.8 Other surgical procedures as the cause of abnormal reaction of the patient, or of later complication, without mention of misadventure at the time of the procedure; Z68.41 Body mass index [BMI] 40.0-44.9, adult
CPT/HCPCS: 97597

== ENCOUNTER 2020-04-22 10:20 | Outpatient (CLI) | payer MEDICARE, BC ==
[2020-04-22] MEDS ORDERED: LIDOcaine 2% 5ml jelly ONE (10:51)
== END 2020-04-22 11:40 | disposition home or self-care (01) ==
LOC: WOUND CARE 10:20
PROVIDERS: ATTEND Nurse Practitioner
DX: T81.31XD Disruption of external operation (surgical) wound, not elsewhere classified, subsequent encounter (principal); E11.622 Type 2 diabetes mellitus with other skin ulcer; L98.492 Non-pressure chronic ulcer of skin of other sites with fat layer exposed; I10 Essential (primary) hypertension; E11.36 Type 2 diabetes mellitus with diabetic cataract; E78.5 Hyperlipidemia, unspecified; E66.9 Obesity, unspecified; Z85.038 Personal history of other malignant neoplasm of large intestine; Z90.49 Acquired absence of other specified parts of digestive tract; Z87.891 Personal history of nicotine dependence; Z68.41 Body mass index [BMI] 40.0-44.9, adult; Y83.8 Other surgical procedures as the cause of abnormal reaction of the patient, or of later complication, without mention of misadventure at the time of the procedure
CPT/HCPCS: 36416; 82948; 97597

== ENCOUNTER 2020-04-28 09:28 | Outpatient (CLI) | payer MEDICARE, BC ==
[2020-04-28] MEDS ORDERED: LIDOcaine 2% 5ml jelly ONE (10:11)
== END 2020-04-28 23:59 | disposition home or self-care (01) ==
LOC: WOUND CARE 09:28
PROVIDERS: ATTEND Nurse Practitioner
DX: T81.31XD Disruption of external operation (surgical) wound, not elsewhere classified, subsequent encounter (principal); E11.622 Type 2 diabetes mellitus with other skin ulcer; L98.492 Non-pressure chronic ulcer of skin of other sites with fat layer exposed; I10 Essential (primary) hypertension; E11.36 Type 2 diabetes mellitus with diabetic cataract; E78.5 Hyperlipidemia, unspecified; E66.9 Obesity, unspecified; Z85.038 Personal history of other malignant neoplasm of large intestine; Z90.49 Acquired absence of other specified parts of digestive tract; Z87.891 Personal history of nicotine dependence; Z79.84 Long term (current) use of oral hypoglycemic drugs; Z68.41 Body mass index [BMI] 40.0-44.9, adult; Y83.8 Other surgical procedures as the cause of abnormal reaction of the patient, or of later complication, without mention of misadventure at the time of the procedure
CPT/HCPCS: 36416; 82948; 97597

== ENCOUNTER 2020-05-13 10:05 | Outpatient (CLI) | payer MEDICARE, BC ==
[2020-05-13] MEDS ORDERED: LIDOcaine 2% 5ml jelly ONE (11:05)
== END 2020-05-13 23:59 | disposition home or self-care (01) ==
LOC: WOUND CARE 10:05
PROVIDERS: ATTEND Nurse Practitioner
DX: T81.31XD Disruption of external operation (surgical) wound, not elsewhere classified, subsequent encounter (principal); E11.622 Type 2 diabetes mellitus with other skin ulcer; L98.492 Non-pressure chronic ulcer of skin of other sites with fat layer exposed; I10 Essential (primary) hypertension; E11.36 Type 2 diabetes mellitus with diabetic cataract; E78.5 Hyperlipidemia, unspecified; E66.9 Obesity, unspecified; Z85.038 Personal history of other malignant neoplasm of large intestine; Z90.49 Acquired absence of other specified parts of digestive tract; Z87.891 Personal history of nicotine dependence; Z79.84 Long term (current) use of oral hypoglycemic drugs; Z68.41 Body mass index [BMI] 40.0-44.9, adult; Y83.8 Other surgical procedures as the cause of abnormal reaction of the patient, or of later complication, without mention of misadventure at the time of the procedure
CPT/HCPCS: 36416; 82948; 97597

== ENCOUNTER 2021-01-01 19:52 | Emergency (ER) | payer BC, MEDICARE ==
[~2021-01-01] VITALS: Ht 157.5 cm; Wt 100.0 kg
[~2021-01-01 19:52] MED LIST changes: -HCTZ25T PO; +HYDR25TA5 PO; +LISI10TA27 PO; -LISI10TA4 PO; +LORA-657 PO; -LORA-660 PO
[2021-01-01] MEDS ORDERED: DOCU250C96 PO (23:17)
[2021-01-01] MEDS ORDERED: MAGN296S68 PO (23:17)
[2021-01-02 00:19] VITALS: BP 136/81
== END 2021-01-02 00:23 | disposition home or self-care (01) ==
LOC: ER 19:52
DX: K59.00 Constipation, unspecified (principal); R19.7 Diarrhea, unspecified; Z85.038 Personal history of other malignant neoplasm of large intestine; Z98.891 History of uterine scar from previous surgery; Z88.8 Allergy status to other drugs, medicaments and biological substances; Z79.82 Long term (current) use of aspirin; Z79.899 Other long term (current) drug therapy
CPT/HCPCS: 99282